=== PATIENT | male | born 1935 | race Caucasian/White ===

== ENCOUNTER 2016-11-24 08:35 | Outpatient (CLI) | payer MEDICARE, BC ==
[2016-11-24 12:30] LABS: Hemoglobin A1c 6.8 % (4.0-6.0)
[2016-11-24 12:48] LABS: Anion Gap 16 mmol/L (10-20); BUN (Urea Nitrogen) 20 mg/dL (8.4-25.7); Calc. Creatinine Clearance 0 mL/min (70-130); Calcium 9.5 mg/dL (7.8-10.44); Carbon Dioxide 21 mmol/L (23-31); Chloride 108 mmol/L (98-107); Estimated GFR-MDRD 41; LDL Cholesterol, Calculated 86 mg/dL
== END 2016-11-24 08:36 ==
LOC: NAVSJIPCSP 08:35
PROVIDERS: ATTEND Internal Medicine
DX: E78.5 Hyperlipidemia, unspecified (principal); I11.0 Hypertensive heart disease with heart failure; E11.59 Type 2 diabetes mellitus with other circulatory complications; Z79.899 Other long term (current) drug therapy
CPT/HCPCS: 36415; 80048; 80061; 83036

== ENCOUNTER 2017-02-24 08:55 | Outpatient (CLI) | payer MEDICARE, BC ==
[2017-02-24 12:32] LABS: Hemoglobin A1c 6.1 % (4.0-6.0)
[2017-02-24 13:07] LABS: Anion Gap 17 mmol/L (10-20); BUN (Urea Nitrogen) 22 mg/dL (8.4-25.7); Calc. Creatinine Clearance 0 mL/min (70-130); Calcium 9.2 mg/dL (7.8-10.44); Carbon Dioxide 22 mmol/L (23-31); Cardiac Risk 2.7 (Less than 4.5); Chloride 104 mmol/L (98-107); Cholesterol 153 mg/dl (< 200 Desired); Estimated GFR-MDRD 49; Glucose 124 mg/dL (83-110); HDL Cholesterol 56 mg/dL (>60 Neg Risk); LDL Cholesterol, Calculated 85 mg/dL; Potassium 3.8 mmol/L (3.5-5.1); Sodium 139 mmol/L (136-145); Triglycerides 59 mg/dL (Less than 150)
== END 2017-02-24 08:56 | disposition home or self-care (01) ==
LOC: NAVSJIPCSP 08:55
PROVIDERS: ATTEND Internal Medicine
DX: I11.0 Hypertensive heart disease with heart failure (principal); I50.9 Heart failure, unspecified; E78.5 Hyperlipidemia, unspecified; E11.59 Type 2 diabetes mellitus with other circulatory complications; Z79.899 Other long term (current) drug therapy
CPT/HCPCS: 36415; 80048; 80061; 83036

== ENCOUNTER 2017-05-19 08:50 | Outpatient (CLI) | payer MEDICARE, BC ==
[2017-05-19 12:21] LABS: Hemoglobin A1c 6.1 % (4.0-6.0)
[2017-05-19 12:46] LABS: Cardiac Risk 3.4 (Less than 4.5)
== END 2017-05-19 08:51 | disposition home or self-care (01) ==
LOC: NAVSJIPCSP 08:50
PROVIDERS: ATTEND Internal Medicine
DX: E78.5 Hyperlipidemia, unspecified (principal); E11.59 Type 2 diabetes mellitus with other circulatory complications; Z79.899 Other long term (current) drug therapy
CPT/HCPCS: 36415; 80061; 83036